=== PATIENT | female | born 1990 | race American Indian/Alaskan Native ===

== ENCOUNTER 2019-01-17 15:58 | Emergency (ER) | payer MEDICAID ==
[2019-01-17 16:07] VITALS: BP 121/81
--- NOTE | 2019-01-17 16:33 | Emergency Department Report ---
Blank Doc - Documentation Documentation: 28 y/o c/o of left flank pain and pelvic pain with vaginal bleeding NO dysuria. nausea and no vomiting. Plan urine and possible Us
[2019-01-17 17:16] LABS: HCG Qualitative,Urine Negative (Negative)
[2019-01-17 17:19] LABS: Bilirubin,Urine NEG (Negative); Blood,Urine LG (Negative); Color,Urine Yellow (Yellow); Mucus,Urine FEW /HPF
== END 2019-01-17 16:35 ==
LOC: ED 15:58
DX: R10.9 Unspecified abdominal pain (principal); Z53.21 Procedure and treatment not carried out due to patient leaving prior to being seen by health care provider
CPT/HCPCS: 81001; 81025

== ENCOUNTER 2019-01-18 10:56 | Emergency (ER) | payer MEDICAID ==
[2019-01-18] MEDS ORDERED: ZOFRAN ODT PO ONE (13:36)
[2019-01-18] MEDS ORDERED: NORCO 10/325 PO ONE (13:36)
[2019-01-18 13:52] VITALS: BP 125/83
[2019-01-18 13:59] LABS: Basophils # (Auto) 0.1 K/mm3 (0.0-0.1); Basophils % (Auto) 0.6 % (0.0-1.8); Eosinophils # (Auto) 0.2 K/mm3 (0.0-0.4); Eosinophils % (Auto) 1.7 % (0.0-4.3); Hematocrit 34.5 % (30.3-42.9); Lymphocytes % (Auto) 34.7 % (13.4-35.0); Mean Corpuscular HGB Conc 35 % (30-34); Mean Corpuscular Volume 95 fl (79-97); Monocytes # (Auto) 0.5 K/mm3 (0.0-0.8); Monocytes % (Auto) 5.9 % (0.0-7.3); Platelet Count 245 K/mm3 (140-440); Red Blood Count 3.65 M/mm3 (3.65-5.03); Red Cell Distribution Width 12.6 % (13.2-15.2)
[2019-01-18 14:21] LABS: Alanine Aminotransferase 8 units/L (7-56); Albumin 3.8 g/dL (3.9-5); BUN/Creatinine Ratio 12; Blood Urea Nitrogen 7 mg/dL (7-17); Calcium 8.7 mg/dL (8.4-10.2); Hemolysis Index 4
--- NOTE | 2019-01-18 15:29 | Emergency Department Report ---
ED General Adult HPI - General Chief complaint: Abdominal Pain Stated complaint: LFT SIDE PAIN Time Seen by Provider: 01/18/19 12:44 Source: patient Mode of arrival: Ambulatory Limitations: No Limitations - History of Present Illness Initial comments: Patient complains of left flank pain that radiates into the left lower quadrant for the last 9 days. The patient describes the pain as sharp in nature and intermittent. Denies any nausea, vomiting, or diarrhea. -: Gradual Location: abdomen Radiation: other (left groin) Severity scale (0 -10): 8 Quality: sharp Consistency: intermittent Improves with: none Worsens with: none Associated Symptoms: denies other symptoms Treatments Prior to Arrival: none - Related Data Allergies Allergy/AdvReac Type Severity Reaction Status Date / Time No Known Allergies Allergy Verified 01/17/19 16:07 ED Review of Systems ROS: Stated complaint: LFT SIDE PAIN Other details as noted in HPI Constitutional: denies: chills, fever Eyes: denies: eye pain, eye discharge, vision change ENT: denies: ear pain, throat pain Respiratory: denies: cough, shortness of breath, wheezing Cardiovascular: denies: chest pain, palpitations Endocrine: no symptoms reported Gastrointestinal: abdominal pain. denies: nausea, diarrhea Genitourinary: denies: urgency, dysuria, discharge Musculoskeletal: denies: back pain, joint swelling, arthralgia Skin: denies: rash, lesions Neurological: denies: headache, weakness, paresthesias Psychiatric: denies: anxiety, depression Hematological/Lymphatic: denies: easy bleeding, easy bruising ED Past Medical Hx - Past Medical History Previous Medical History?: No - Surgical History Past Surgical History?: No - Social History Smoking Status: Never Smoker Substance Use Type: None ED Physical Exam - General Limitations: No Limitations General appearance: alert, in no apparent distress - Head Head exam: Present: atraumatic, normocephalic - Eye Eye exam: Present: normal appearance, PERRL, EOMI - ENT ENT exam: Present: mucous membranes moist - Neck Neck exam: Present: normal inspection - Respiratory Respiratory exam: Present: normal lung sounds bilaterally. Absent: respiratory distress, wheezes, rales, rhonchi - Cardiovascular Cardiovascular Exam: Present: regular rate, normal rhythm. Absent: systolic murmur, diastolic murmur, rubs, gallop - GI/Abdominal GI/Abdominal exam: Present: soft, normal bowel sounds. Absent: distended, tenderness - Extremities Exam Extremities exam: Present: normal inspection - Back Exam Back exam: Present: normal inspection - Neurological Exam Neurological exam: Present: alert, oriented X3, CN II-XII intact. Absent: motor sensory deficit - Psychiatric Psychiatric exam: Present: normal affect, normal mood - Skin Skin exam: Present: warm, dry, intact, normal color. Absent: rash ED Course Vital Signs 01/18/19 01/18/19 11:04 13:49 Temperature 98.2 F 98.3 F Pulse Rate 78 72 Respiratory 18 16 Rate Blood Pressure 116/74 Blood Pressure 125/83 [Left] O2 Sat by Pulse 100 97 Oximetry ED Medical Decision Making - Lab Data Result diagrams: 01/18/19 13:49 01/18/19 13:49 Lab Results 01/18/19 01/18/19 01/18/19 Range/Units 13:49 13:49 13:49 WBC 8.8 (4.5-11.0) K/mm3 RBC 3.65 (3.65-5.03) M/mm3 Hgb 12.0 (10.1-14.3) gm/dl Hct 34.5 (30.3-42.9) % MCV 95 (79-97) fl MCH 33 H (28-32) pg MCHC 35 H (30-34) % RDW 12.6 L (13.2-15.2) % Plt Count 245 (140-440) K/mm3 Lymph % (Auto) 34.7 (13.4-35.0) % Starr % (Auto) 5.9 (0.0-7.3) % Eos % (Auto) 1.7 (0.0-4.3) % Baso % (Auto) 0.6 (0.0-1.8) % Lymph # 3.0 (1.2-5.4) K/mm3 Starr # 0.5 (0.0-0.8) K/mm3 Eos # 0.2 (0.0-0.4) K/mm3 Baso # 0.1 (0.0-0.1) K/mm3 Seg Neutrophils % 57.1 (40.0-70.0) % Seg Neutrophils # 5.0 (1.8-7.7) K/mm3 Sodium 141 (137-145) mmol/L Potassium 3.8 (3.6-5.0) mmol/L Chloride 107.2 H (98-107) mmol/L Carbon Dioxide 25 (22-30) mmol/L Anion Gap 13 mmol/L BUN 7 (7-17) mg/dL Creatinine 0.6 L (0.7-1.2) mg/dL Estimated GFR > 60 ml/min BUN/Creatinine Ratio 12 % Glucose 80 (65-100) mg/dL Calcium 8.7 (8.4-10.2) mg/dL Total Bilirubin 0.60 (0.1-1.2) mg/dL AST 11 (5-40) units/L ALT 8 (7-56) units/L Alkaline Phosphatase 51 (35-129) units/L Total Protein 6.6 (6.3-8.2) g/dL Albumin 3.8 L (3.9-5) g/dL Albumin/Globulin Ratio 1.4 % HCG, Quant < 2 (0-4) mIU/mL - Medical Decision Making Patient became tired of waiting for CT of abdomen to be done and asked to leave. Discussed with patient my concern for her findings on history and physical and would rather she stay for CT of abdomen. The patient declined and left AGAINST MEDICAL ADVICE Patient was again stated she was tired of waiting to have imaging done and was ready to go Critical care attestation.: If time is entered above; I have spent that time in minutes in the direct care of this critically ill patient, excluding procedure time. ED Disposition Clinical Impression: Abdominal pain Disposition: DC-07 LEFT AGAINST MED ADVICE Is pt being admited?: No Does the pt Need Aspirin: No Condition: Stable Instructions: Abdominal Pain (ED) Referrals: LUIS DANIEL FITZPATRICK MD [Primary Care Provider] - 3-5 Days Forms: AMA Form
[2019-01-18 16:07] LABS: Bilirubin,Urine NEG (Negative); Blood,Urine SM (Negative); Color,Urine Yellow (Yellow); Mucus,Urine FEW /HPF; Protein,Urine <15 mg/dL mg/dL (Negative)
== END 2019-01-18 15:50 | disposition left against medical advice (07) ==
LOC: ED 10:56
DX: R10.32 Left lower quadrant pain (principal)
CPT/HCPCS: 36415; 80053; 81001; 84702; 85025; Q0162

== ENCOUNTER 2019-04-13 13:46 | Emergency (ER) | payer MEDICAID ==
--- NOTE | 2019-04-13 14:13 | Emergency Department Report ---
Blank Doc - Documentation Documentation: This is a 28-year-old female that presents with pelvic pain and cramping. Den ies any n/v. This initial assessment/diagnostic orders/clinical plan/treatment(s) is/are subject to change based on patient's health status, clinical progression and re- assessment by fellow clinical providers in the ED. Further treatment and workup at subsequent clinical providers discretion. Patient/guardians urged not to elope from the ED as their condition may be serious if not clinically assessed and managed. Initial orders include: 1- Patient sent to [facility] for further evaluation and treatment 2- UA
[2019-04-13 14:14] VITALS: BP 124/81
[2019-04-13 14:45] LABS: Bacteria,Urine 1+ /HPF (Negative); Bilirubin,Urine NEG (Negative); Blood,Urine NEG (Negative); Color,Urine Yellow (Yellow); Mucus,Urine 2+ /HPF; Protein,Urine <15 mg/dL mg/dL (Negative)
[2019-04-13 14:50] LABS: HCG Qualitative,Urine Negative (Negative)
--- NOTE | 2019-04-13 16:19 | Emergency Department Report ---
ED Abdominal Pain HPI - General Chief Complaint: Abdominal Pain Stated Complaint: L SIDE PAIN Time Seen by Provider: 04/13/19 14:12 Source: patient Mode of arrival: Ambulatory Limitations: No Limitations - History of Present Illness Initial Comments: Patient is a 28-year-old female who states for the past week she has had some suprapubic discomfort which is radiating to the left lower quadrant. She denies vaginal discharge or vaginal bleeding or diarrhea. Patient does state she has some urinary frequency but does not have dysuria. Patient denies nausea vomiting fevers chills at this time. Pain is not worse with movement. Severity scale (0 -10): 5 Quality: aching - Related Data Previous Rx's Medication Instructions Recorded Last Taken Type Ibuprofen [Motrin 600 MG tab] 600 mg PO Q8H PRN #20 tablet 04/13/19 Unknown Rx Nitrofurantoin [place]/M-Cryst 100 mg PO Q12HR #14 capsule 04/13/19 Unknown Rx [Macrobid CAP] Phenazopyridine [Pyridium] 200 mg PO BID #6 tab 04/13/19 Unknown Rx Allergies Allergy/AdvReac Type Severity Reaction Status Date / Time No Known Allergies Allergy Verified 01/17/19 16:07 ED Review of Systems ROS: Stated complaint: L SIDE PAIN Other details as noted in HPI Comment: All other systems reviewed and negative ED Past Medical Hx - Past Medical History Hx Arthritis: No Hx Asthma: No - Surgical History Past Surgical History?: No - Social History Smoking Status: Never Smoker Substance Use Type: None - Medications Home Medications: Home Medications Medication Instructions Recorded Confirmed Last Taken Type Ibuprofen [Motrin 600 MG tab] 600 mg PO Q8H PRN #20 tablet 04/13/19 Unknown Rx Nitrofurantoin [place]/M-Cryst 100 mg PO Q12HR #14 capsule 04/13/19 Unknown Rx [Macrobid CAP] Phenazopyridine [Pyridium] 200 mg PO BID #6 tab 04/13/19 Unknown Rx ED Physical Exam - General Limitations: No Limitations General appearance: alert, in no apparent distress - Head Head exam: Present: atraumatic, normocephalic - Eye Eye exam: Present: normal appearance, PERRL, EOMI - ENT ENT exam: Present: mucous membranes moist - Neck Neck exam: Present: normal inspection - Respiratory Respiratory exam: Present: normal lung sounds bilaterally. Absent: respiratory distress, wheezes, rales, rhonchi - Cardiovascular Cardiovascular Exam: Present: regular rate, normal rhythm. Absent: systolic murmur, diastolic murmur, rubs, gallop - GI/Abdominal GI/Abdominal exam: Present: soft, tenderness (suprapubic), normal bowel sounds. Absent: distended, guarding, rebound - Extremities Exam Extremities exam: Present: normal inspection - Back Exam Back exam: Present: normal inspection - Neurological Exam Neurological exam: Present: alert, oriented X3 - Psychiatric Psychiatric exam: Present: normal affect, normal mood - Skin Skin exam: Present: warm, dry, intact, normal color. Absent: rash ED Course Vital Signs 04/13/19 14:12 Temperature 98.5 F Pulse Rate 88 Respiratory 16 Rate Blood Pressure 124/81 O2 Sat by Pulse 100 Oximetry ED Medical Decision Making - Lab Data Temp Pulse Resp BP Pulse Ox 98.5 F 88 16 124/81 100 04/13/19 14:12 04/13/19 14:12 04/13/19 14:12 04/13/19 14:12 04/13/19 14:12 Lab Results 04/13/19 Range/Units 14:16 Urine Color Yellow (Yellow) Urine Turbidity Slightly-cloudy (Clear) Urine pH 6.0 (5.0-7.0) Ur Specific [place] 1.024 (1.003-1.030) Urine Protein <15 mg/dl (Negative) mg/dL Urine Glucose (UA) Neg (Negative) mg/dL Urine Ketones Neg (Negative) mg/dL Urine Blood Neg (Negative) Urine Nitrite Neg (Negative) Urine Bilirubin Neg (Negative) Urine Urobilinogen 4.0 (<2.0) mg/dL Ur Leukocyte Esterase Tr (Negative) Urine WBC (Auto) 2.0 (0.0-6.0) /HPF Urine RBC (Auto) 6.0 (0.0-6.0) /HPF U Epithel Cells (Auto) 14.0 H (0-13.0) /HPF Urine Bacteria (Auto) 1+ (Negative) /HPF Urine Mucus 2+ /HPF Urine HCG, Qual Negative (Negative) - Medical Decision Making Patient has trace leuk esterase small amount WBCs and a small amount of bacteria. The patient does have some urinary frequency and the patient will be treated for urinary tract infection at this time. Patient discharged home with medications symptomatic relief. Critical care attestation.: If time is entered above; I have spent that time in minutes in the direct care of this critically ill patient, excluding procedure time. ED Disposition Clinical Impression: Acute cystitis Qualifiers: Hematuria presence: without hematuria Qualified Code(s): N30.00 - Acute cystitis without hematuria Disposition: TO HOME OR SELFCARE Is pt being admited?: No Does the pt Need Aspirin: No Condition: Stable Instructions: Abdominal Pain (ED) Referrals: HAIDER HAYS MD [Staff Physician] - 3-5 Days Time of Disposition: 16:19
== END 2019-04-13 16:25 | disposition home or self-care (01) ==
LOC: ED 13:46
DX: N30.00 Acute cystitis without hematuria (principal); Z79.1 Long term (current) use of non-steroidal anti-inflammatories (NSAID); Z79.899 Other long term (current) drug therapy
CPT/HCPCS: 81001; 81025; 99282

== ENCOUNTER 2020-11-18 13:35 | Emergency (ER) | payer MEDICAID ==
[2020-11-18 14:15] VITALS: BP 120/76
--- NOTE | 2020-11-18 14:37 | Emergency Department Report ---
ED ENT HPI - General Chief complaint: Dental/Oral Stated complaint: TOOTHACHE Time Seen by Provider: 11/18/20 14:20 Source: patient Mode of arrival: Ambulatory Limitations: No Limitations - History of Present Illness Initial comments: pt is a 30 yo female who presents to the ED with c/o right upper dental pain that began three days ago. she states she has noticed swelling surrounding the tooth. she denies any facial swelling. she states she has an appointment with a dentist in 2 weeks. she denies any n/v/d, fever, difficulty swallowing, difficulty breathing. no PMHx. no allergies to meds. she states she last saw a dentist 7 months ago. - Related Data Previous Rx's Medication Instructions Recorded Last Taken Type Ibuprofen [Motrin 600 MG tab] 600 mg PO Q8H PRN #20 tablet 04/13/19 Unknown Rx Nitrofurantoin [place]/M-Cryst 100 mg PO Q12HR #14 capsule 04/13/19 Unknown Rx [Macrobid CAP] Phenazopyridine [Pyridium] 200 mg PO BID #6 tab 04/13/19 Unknown Rx Naproxen [EC-Naprosyn] 500 mg PO BID PRN #14 tablet. 11/18/20 Unknown Rx Penicillin Vk [Veetids TAB] 500 mg PO QID 7 Days #56 tablet 11/18/20 Unknown Rx Allergies Allergy/AdvReac Type Severity Reaction Status Date / Time No Known Allergies Allergy Verified 01/17/19 16:07 ED Dental HPI - General Chief complaint: Dental/Oral Stated complaint: TOOTHACHE Time Seen by Provider: 11/18/20 14:20 Source: patient Mode of arrival: Ambulatory Limitations: No Limitations - Related Data Previous Rx's Medication Instructions Recorded Last Taken Type Ibuprofen [Motrin 600 MG tab] 600 mg PO Q8H PRN #20 tablet 04/13/19 Unknown Rx Nitrofurantoin [place]/M-Cryst 100 mg PO Q12HR #14 capsule 04/13/19 Unknown Rx [Macrobid CAP] Phenazopyridine [Pyridium] 200 mg PO BID #6 tab 04/13/19 Unknown Rx Naproxen [EC-Naprosyn] 500 mg PO BID PRN #14 tablet. 11/18/20 Unknown Rx Penicillin Vk [Veetids TAB] 500 mg PO QID 7 Days #56 tablet 11/18/20 Unknown Rx Allergies Allergy/AdvReac Type Severity Reaction Status Date / Time No Known Allergies Allergy Verified 01/17/19 16:07 ED Review of Systems ROS: Stated complaint: TOOTHACHE Other details as noted in HPI Comment: All other systems reviewed and negative ED Past Medical Hx - Past Medical History Previous Medical History?: No Hx Arthritis: No Hx Asthma: No - Surgical History Past Surgical History?: No - Social History Smoking Status: Never Smoker Substance Use Type: None - Medications Home Medications: Home Medications Medication Instructions Recorded Confirmed Last Taken Type Ibuprofen [Motrin 600 MG tab] 600 mg PO Q8H PRN #20 tablet 04/13/19 Unknown Rx Nitrofurantoin [place]/M-Cryst 100 mg PO Q12HR #14 capsule 04/13/19 Unknown Rx [Macrobid CAP] Phenazopyridine [Pyridium] 200 mg PO BID #6 tab 04/13/19 Unknown Rx Naproxen [EC-Naprosyn] 500 mg PO BID PRN #14 tablet. 11/18/20 Unknown Rx Penicillin Vk [Veetids TAB] 500 mg PO QID 7 Days #56 tablet 11/18/20 Unknown Rx ED Physical Exam - General Limitations: No Limitations General appearance: alert, in no apparent distress - Head Head exam: Present: atraumatic, normocephalic - Eye Eye exam: Present: normal appearance - ENT ENT exam: Present: normal orophraynx, mucous membranes moist, other (there are missing teeth present, there is a dental carry present to the right upper back molar, there is surrounding mild edema of the gumline, no facial edema, uvula is midline, no uvular edema or deviation, no trismus, no tongue elevation, no mu ffled voice) - Respiratory Respiratory exam: Present: normal lung sounds bilaterally. Absent: respiratory distress, wheezes, rales, rhonchi, stridor, chest wall tenderness, accessory muscle use, decreased breath sounds, prolonged expiratory - Cardiovascular Cardiovascular Exam: Present: regular rate, normal rhythm, normal heart sounds. Absent: systolic murmur, diastolic murmur, rubs, gallop - Neurological Exam Neurological exam: Present: alert, oriented X3 - Psychiatric Psychiatric exam: Present: normal affect, normal mood - Skin Skin exam: Present: warm, dry, intact ED Course Vital Signs 11/18/20 14:06 Temperature 98.6 F Pulse Rate 84 Respiratory 16 Rate Blood Pressure 120/76 O2 Sat by Pulse 100 Oximetry ED Medical Decision Making - Medical Decision Making pt is a 30 yo female who presents to the ED with c/o right upper dental pain that began three days ago. she states she has noticed swelling surrounding the tooth. she denies any facial swelling. she states she has an appointment with a dentist in 2 weeks. she denies any n/v/d, fever, difficulty swallowing, difficu lty breathing. no PMHx. no allergies to meds. she states she last saw a dentist 7 months ago. vitals are normal. on exam: there are missing teeth present, there is a dental carry present to the right upper back molar, there is surrounding mild edema of the gumline, no facial edema, uvula is midline, no uvular edema or deviation, no trismus, no tongue elevation, no muffled voice. Examination appears consistent with infected dental caries and early dental abscess. No signs of facial cellulitis, facial abscess, Jerry's at this time. Patient given prescription for penicillin VK and naproxen. Advised patient please take medication as prescribed. gargle with warm salt water. follow up with a dentist. it is very important you follow up. return to the emergency room for any new or worsening symptoms. Critical care attestation.: If time is entered above; I have spent that time in minutes in the direct care of this critically ill patient, excluding procedure time. ED Disposition Clinical Impression: Infected dental caries Disposition: TO HOME OR SELFCARE Is pt being admited?: No Does the pt Need Aspirin: No Condition: Stable Instructions: Dental Abscess Additional Instructions: please take medication as prescribed. gargle with warm salt water. follow up with a dentist. it is very important you follow up. return to the emergency room for any new or worsening symptoms. Prescriptions: Naproxen [EC-Naprosyn] 500 mg PO BID PRN #14 tablet.dr SOLIS Reason: pain Penicillin Vk [Veetids TAB] 500 mg PO QID 7 Days #56 tablet Referrals: PRIMARY CARE, [Primary Care Provider] - 2-3 Days your, dentist [Other] - 2-3 Days Time of Disposition: 14:35 Print Language: ICELANDIC
== END 2020-11-18 15:26 | disposition home or self-care (01) ==
LOC: ED 13:35
DX: K02.9 Dental caries, unspecified (principal); K04.7 Periapical abscess without sinus; Z79.1 Long term (current) use of non-steroidal anti-inflammatories (NSAID); Z79.2 Long term (current) use of antibiotics; Z79.899 Other long term (current) drug therapy
CPT/HCPCS: 99281

== ENCOUNTER 2022-03-25 03:08 | Emergency (ER) | payer MEDICAID ==
[2022-03-25 03:26] VITALS: BP 131/78
[2022-03-25 04:09] LABS: Hemoglobin 11.6 gm/dl (10.1-14.3); Mean Corpuscular HGB Conc 33 % (30-34); Mean Corpuscular Volume 98 fl (79-97); Platelet Count 240 K/mm3 (140-440); Red Blood Count 3.57 M/mm3 (3.65-5.03); Red Cell Distribution Width 12.8 % (13.2-15.2)
[2022-03-25 04:24] LABS: Alanine Aminotransferase 10 units/L (7-56); Albumin 3.7 g/dL (3.9-5); Blood Urea Nitrogen 9 mg/dL (7-17); Calcium 9.2 mg/dL (8.4-10.2); Hemolysis Index 9
[2022-03-25 04:27] LABS: BUN/Creatinine Ratio 15
[2022-03-25 05:40] LABS: Anisocytosis 1+; Basophils % (Manual) 0 % (0.0-1.8); Eosinophils % (Manual) 0 % (0.0-4.3); Platelet Estimate Consistent w Auto; Total Cells Counted 100
[2022-03-25 09:15] LABS: Bilirubin,Urine NEG (Negative); Blood,Urine NEG (Negative); Color,Urine Amber (Yellow); Mucus,Urine 1+ /HPF
== END 2022-03-25 11:30 | disposition left against medical advice (07) ==
LOC: ED 03:08
DX: R10.9 Unspecified abdominal pain (principal); Z53.21 Procedure and treatment not carried out due to patient leaving prior to being seen by health care provider
CPT/HCPCS: 36415; 80053; 81001; 84702; 85007; 85025